=== PATIENT | male | born 1975 | race Two or more races ===

== ENCOUNTER → 2017-02-13 | Outpatient (CLI) | payer OTHER ==
--- NOTE | 2017-02-13 20:51 | HKNOTE ---
DATE OF SERVICE: 02/13/2017 REFERRING PHYSICIAN: Jackson Lamas MD MAIN COMPLAINT: Pain and instability of the right knee. HISTORY OF MAIN COMPLAINT: The patient is a 42-year-old male who complains of pain in his right kne e. The patient injured his right knee about 3 years ago while playing soccer. He was able to get u p from the injury and his knee was painful for a few weeks, but he never saw a physician for the kne e. Shortly, the knee improved. After as pain free period, his knee developed pain and instability, which has progressed over the past [address] Jackson Lamas who ordered an MRI scan on the knee and referred him to me for further evaluation and treatment. PRESENT COMPLAINTS: Pain in the right knee is mainly over the medial and posterior aspects of the k nee. The pain is described as moderate, occasionally severe, and is aggravated by climbing stairs o r by squatting. He occasionally gets pain at rest; he denied having any night pain. If he walks on a flat level surface, he can walk as far as he needs to; however, as soon as he walks on uneven bairon und, then he develops pain in the knee. The knee also becomes unstable and he has fallen twice. He does not notice the has swollen and there has not been any reported locking to the knee. The patient does have any problems with his lower back. He has no numbness or tingling in his legs. He does not limp. His leg lengths feel equal. He does not have a shoe lift. He can clip his toe nails and tie his shoelaces. PAST SPORTING ACTIVITIES: Patient has discontinued playing soccer. PAST ORTHOPEDIC HISTORY AND PREVIOUS ORTHOPEDIC OPERATIONS: None. PRIOR CORTISONE INTAKE: None. ALCOHOL INTAKE: "Very little," perhaps 2 beers a month. OTHER JOINT PROBLEMS: None. BLOOD TESTS FOR ARTHRITIS: None. PRIOR INJURIES TO HIPS OR KNEES: Only as above. 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 MEDICATIONS 1. Ibuprofen 800 mg a day. 2. Simvastatin 40 mg daily. FAMILY HISTORY: Both parents alive; history noncontributory. SYSTEMS REVIEW: Occasional heartburn, hypertension. HABITS: He does not smoke or drink alcoholic beverages. PHYSICAL EXAMINATION GENERAL: The patient is a fit-looking and youthful, 42-year-old male. He is somewhat overweight. VITAL SIGNS: Height 5 feet 8 inches, weight 182 pounds, blood pressure 116/68, temperature 99.3, a second temperature was 98.6. GENERAL: The patient walks without a walking aid. HIPS: Both hips have full range of motion without pain. RIGHT KNEE: The right knee shows normal alignment. Extension is full but painful. Flexion lacks abo ut 20 degrees and is markedly painful. The medial and lateral collateral ligaments and cruciate liga ments are intact. Jacklyn test is negative. 1+ effusion. Tender over the medial joint line. No sca rring, crepitus, or cysts. There is no tenderness on the articular surface of the patella or in the patellar groove. The Q angle is normal. IMAGING: An MRI scan of the right knee obtained on 01/09/[address] Michael Kunz as showing "chronic complete proximal/anterior cruciate ligament tear, with mild anterior tibial transl ation. Inner margin tearing of the posterior horn of the lateral meniscus, with mild intrasubstance degeneration of the lateral meniscus body. No acute osseous or acute ligamentous abnormality." DIAGNOSES 1. Tear of the anterior cruciate ligament of the right knee. 2. Tear of the lateral meniscus of the right knee. 3. Hypercholesterolemia. 4. Hypertension. DISCUSSION: The actual MRI pictures were reviewed. The tears in the lateral meniscus were noted. Although the MRI suggests that there is "a complete proximal/anterior cruciate ligament tear," remar kably, the knee seemed to be quite stable on stressing the anterior cruciate ligament. The question then arises whether or not this patient needs to have an anterior cruciate ligament rep air. In general, we do not recommend ACL tears in patients who are 40 or older, unless they are professio nal athletes. MANAGEMENT: The patient advised that he will need to have an arthroscopic operation on the knee. T he procedure and some of the major possible complications were discussed with him in a fair amount o f detail. Postoperative course was discussed with him. He will need to be off work for a minimum of 1 week after the procedure. Patient will call if and when he wishes to consider proceeding with the operation. Dictated By: TIANNA CABRALES/PRESTON Conf#: [id number] DID#: [id number] CC: Jackson Lamas MD;*[facility]*
--- NOTE | 2017-02-13 20:55 | HKNOTE ---
DATE OF SERVICE: 02/13/2017 Jackson Lamas MD [address] [place] [address] Lamas: Thank you for referring Mr. Ameya Garcia who is in my office today complaining of pain and insta bility in his right knee. He has a torn lateral meniscus and the MRI indicates a torn anterior cruciate ligament. Remarkably, on physical examination the cruciate ligament appears to be intact and the knee is not u nstable in an anterior/posterior stressing. He will definitely need to have an arthroscopic operation on his knee for the torn meniscus and eval uation of the rest of the knee. Thank you for your confidence in referring him to my care. Enclosed is a copy of my office notes fo r your records. With warmest regards, Dictated By: TIANNA CABRALES/PRESTON Conf#: [id number] DID#: [id number]
== END | disposition home or self-care (01) ==
LOC: HKI 13:25
DX: S76.111D Strain of right quadriceps muscle, fascia and tendon, subsequent encounter (principal); S83.281D Other tear of lateral meniscus, current injury, right knee, subsequent encounter; E87.8 Other disorders of electrolyte and fluid balance, not elsewhere classified; I10 Essential (primary) hypertension
CPT/HCPCS: G0463

== ENCOUNTER 2019-06-15 05:42 | Day surgery (SDC) | payer OTHER ==
[~2019-06-15] VITALS: Ht 172.7 cm; Wt 83.7 kg
[2019-06-15] VITALS (11 sets, daily range): BP systolic 113–129; BP diastolic 71–83; PULSE 64–80; RESP 10–22; Ht 172.7 cm; Wt 83.7 kg
[2019-06-15] MEDS ORDERED: ROPIVACAINE 0.5 % 30 ML VIAL ONE ×2 (06:57→07:37)
[2019-06-15] MEDS ORDERED: POLYMYXIN/BACITRACIN 1L IRRIG ONE (06:57)
[2019-06-15] MEDS ORDERED: BACITRACIN/POLYMYXIN 28.35 GM OINT TOP ONE (06:57)
[2019-06-15] MEDS ORDERED: LACTATED RINGER'S 1,000 ML IV SCH (07:00)
--- NOTE | 2019-06-15 07:28 | PREAC ---
Date/Time of Note Date/Time of Note DATE: 06/15/19 TIME: 07:27 Anesthesia Eval and Record Evaluation Time Pre-Procedure Interview DATE: 06/15/19 TIME: 07:27 Age 44 Sex male NPO: 8 hrs Preoperative diagnosis R knee injury Planned procedure R ACL reconstruction Past Medical History Past Medical History: Includes Cardio: Dyslipidemia GI: Obesity Surgery & Anesthesia Issues No known issue Meds Anticoagulation: No Beta Neris within 24 hr: No Reason Beta Neris not given: Pt. not on B-Neris No Active Prescriptions or Reported Meds Current Medications Lactated Ringer's 1,000 ml @ 0 mls/hr Q0M IV ; Start 06/15/19 at 07:00 Meds reviewed: Yes Allergies Coded Allergies: No Known Allergy (Unverified , 06/15/19) Allergies Reviewed: Yes Labs/Studies Labs Reviewed: Reviewed by anesthesiologist test: N/A Pre-procedure Exam Last vitals Vital Signs Date Temp Pulse Resp B/P (MAP) Pulse Ox O2 O2 Flow FiO2 Time Delivery Rate 06/15/19 98.0 73 18 113/72 96 Room Air 06:52 (86) Airway: Adequate mouth opening, Adequate thyromental dist Mallampati: Mallampati II Teeth: Normal Lung: Normal Heart: Normal ASA Physical Status ASA physical status: 2 Emergency: None Planned Anesthetic General/MAC: ETT Nerve block: Femoral (right) Pre-operative Attestations Prior to commencing anesthesia and surgery, the patient was re-evaluated, there was verification of: *The patient's identity *The results of appropriate recent lab work and preoperative vital signs *The above evaluation not changing prior to induction *Anesthetic plan, risk benefits, alternative and complications discussed with pa baileent/family; questions answered; patient/family understands, accepts and wishes to proceed. MERCEDES THOMSON Jun 15, 2019 07:28
--- NOTE | 2019-06-15 07:34 | HPN ---
Date/Time of Note Date/Time of Note DATE: 06/15/19 TIME: 07:33 Interval H&P Admission Note Pt. seen H&P reviewed: No system changes KELLY LONDON Jun 15, 2019 07:34
[2019-06-15] MEDS ORDERED: FENTAnyl 50 MCG/ML VIAL ONE ×2 (07:36→07:59)
[2019-06-15] MEDS ORDERED: MIDAZOLAM 1 MG/ML 2 ML INJ ONE (07:36)
[2019-06-15] MEDS ORDERED: LIDOCAINE 100 MG SYRINGE ONE (09:37)
[2019-06-15] MEDS ORDERED: ROCURONIUM 50 MG INJ ONE (09:37)
[2019-06-15] MEDS ORDERED: PROPOFOL 20 ML ONE (09:37)
[2019-06-15] MEDS ORDERED: SUCCINYLCHOLINE CHLORIDE 100 MG/5 ML SYG IV ONE (09:37)
[2019-06-15] MEDS ORDERED: CEFAZOLIN 1 GM INJ ONE (09:37)
[2019-06-15] MEDS ORDERED: SUGAMMADEX SODIUM 200 MG/2 ML VIAL IV ONE (10:14)
[2019-06-15] MEDS ORDERED: HYDROmorphONE 1 MG/5 ML IV SYRINGE IV PRN ×3 (11:00)
[2019-06-15] MEDS ORDERED: ALBUTEROL 0.083% (NEB) 2.5 MG/3 ML AMP HHN PRN (11:00)
[2019-06-15] MEDS ORDERED: FENTAnyl 50 MCG/ML VIAL IV PRN ×3 (11:00)
[2019-06-15] MEDS ORDERED: METOCLOPRAMIDE 10 MG INJ IV PRN (11:00)
[2019-06-15] MEDS ORDERED: ONDANSETRON 4 MG INJ IV PRN (11:00)
[2019-06-15] MEDS ORDERED: MEPERIDINE 25 MG INJ IV PRN (11:00)
[2019-06-15] MEDS ORDERED: DIPHENHYDRAMINE 50 MG INJ IV PRN (11:00)
--- NOTE | 2019-06-15 11:24 | OPR ---
Date/Time of Note Date/Time of Note DATE: 06/15/19 TIME: 11:09 Operative Report Procedure Date: Jun 15, 2019 Preoperative Diagnosis Right knee acl tear Right knee lateral meniscal tear Postoperative Diagnosis Right knee acl tear Right knee lateral meniscal tear Operation/Procedure Performed Right knee arthroscopy with ACL reconstruction with tib ant allograft Right knee arthroscopy with lateral meniscal repair Surgeon Rodrigue Alanis MD Handbag Frames Inspector Amauri Anne MD Anesthesia Type: general, other (Facia Ilacus) Anesthesiologist: MERCEDES THOMSON Tourniquet Time: 60 min at 250 mmHg Estimated Blood Loss: minimal Transfusion none Specimen none Grafts/Implants Mitek adjustable loop Mitek 8-10 BioIntrafix Tib Ant Allograft Ceterix Meniscal repair device Mitek Meniscal TrueSpan Complications none Pt Condition Post Procedure: stable Disposition: PACU Indications The patient is a 44 year-old male with a prolonged history of Right knee giving way after playing soccer. He has had continued episodes of instability with catching and clicking over the past several months. The patient has restored their range of motion and is now brought to the operating room for ACL reconstruction, possible partial medial and lateral meniscectomy versus medial and lateral meniscal repair, chondroplasty and debridement. Risk Note: The risks, benefits, and alternatives of surgery were discussed with the patient. The risks included but were not limited to infection, bleeding, damage to vessels and nerves, loss of motion, continued pain, re-tear of the meniscus, deep venous thrombosis, and complications due to anesthesia including nerve injury, myocardial infarction, stroke, , etc. The patient stated understanding of the nature of the surgical procedure and gave written and verbal consent to proceed Procedure Description Patient was met in the preoperative holding area and the correct operative extremity was confirmed with both patient and consent. Patient was given preoperative fascial iliacus block was placed. Patient was brought to the operative theater and placed supine on the operative table. Patient was given general anesthesia and preoperative antibiotics. The Right lower extremity was examined under anesthesia. Range of motion was 0 degrees of extension to 135 degrees of flexion. There was no varus or valgus or posterolateral instability. He had no instability to varus or valgus stress at 0 or 30 degrees. He had a 2+ Jacklyn and drawer with a positive pivot shift The Right lower extremity was then prepped and draped in the usual fashion. A tourniquet was placed proximally on the thigh over a bias stockinette. A standard anterolateral parapatellar stab wound was created. The knee joint wa s entered with a blunt-tipped obturator, followed by the 30-degree video arthroscope. An anteromedial portal was established under arthroscopic control. A routine arthroscopic survey was performed. The suprapatellar pouch was unremarkable. The undersurface of the patella was well-preserved. The patella appeared to track centrally within the trochlear groove. There was no chondromalacia under the lateral patella facet. The trochlea no chondromalacia. The medial and lateral gutters were inspected and there was no loose body seen. There was no hypertrophied plica. The popliteal hiatus was entered and was unremarkable. The lateral compartment was entered. The lateral femoral condyle exhibited grade 1 chondromalacia and the lateral tibial plateau showed no chondromalacia. There was no chondromalacia adjacent to the notch. There was no chondromalacia along the central aspect of the weight bearing lateral tibial plateau. The lateral meniscus torn in a horizontal manner that was treated with a meniscal rasp and then repaired with a Mitek truespan and a Ceterix repair device in a cerclage like fashion. The meniscus was then re probed and found to be stable. The intercondylar notch was visualized. The anterior cruciate ligament was torn from its femoral origin. Posteromedially there was no loose body seen. The posterior cruciate ligament was visualized and appeared intact although slightly strained. The medial compartment was entered. There is no chondromalacia to the medial tibial plateau or medial femoral condyle. The meniscus was probed and found to be stable. Attention was turned to reconstruction of the anterior cruciate ligament. Following exsanguination with an Esmarch bandage the tourniquet was inflated to 250 mm of mercury. Using a motorized shaver a limited notchplasty was performed, exposing the lateral wall and roof of the notch, identifying the [id number] position. The stump of the anterior cruciate ligament was debrided. A Vector guide was placed intra-articularly between the tibial spines in line with the anterior horn of the lateral meniscus. A Say wire was then inserted into the knee through a 2 cm incision made over the proximal medial tibia. The incision was deepened through the subcutaneous tissue with subperiosteal dissection achieved. Bleeding points were coagulated with the Bovie electrocautery. The tibialis anterior allograft was prepped to create a size 10 graft on both the femoral and tibial side. Tibial drilling was then carried out first with a 6 mm followed by a 8 mm then a size 10 mm cylindrical reamer with the guide set at 55 degrees. Via an accessory medial portal, the Beath pin was drilled out the femoral cortex and skin with the knee in hyperflexion. The femoral tunnel was then created, with a spade tip guidewire, Depth-gauging confirmed a condyle length of 35 mm. Then reaming proceeded, with a 10 mm drill to a tunnel depth of 28 mm. A adjustable rigid loop Mitek button was selected. The graft was inserted intra-articularly and the Mitek button was deployed. The graft was cycled for 20 cycles with 25 pounds of force to pre-load the graft. Tibial fixation was carried out using a 8-10 Bio-IntraFix in 10 degrees of flexion with a posterior drawer. At the completion of surgery the patient had a firm stable Jacklyn. There was a negative pivot shift. The patient had a 0 firm Jacklyn and a negative pivot shift. There was no evidence for any roof or lateral wall impingement. The tourniquet was deflated at 90 minutes. The knee was irrigated with two liters of lactated Ringer's solution. Excess fluid was drained. The tibial wounds were then copiously irrigated with bacitracin solution and closed in layers with #0, #2-0 and #3-0 Vicryl. The skin was reapproximated with 3-0 then #4-0 Monocryl. The knee was injected with 20 cc of 0.5% plain ropivacaine. A dry sterile dressing was applied, followed by a bulky bandage and venkat wrap, insuring no contact with the skin. A postoperative TROM brace was applied locked in full extension. The patient was awakened in the Operating Room and transported to the Recovery Room in satisfactory condition. The patient appeared to tolerate the procedure well. At the completion of surgery the patient had soft compartments, palpable pulses, and brisk capillary refill. There were no complications noted. Patient begin partial weightbearing this coming couple days. With the brace l ocked in extension he will begin aspirin 81 mg Po qday starting tomorrow. Handbag Frames Inspector surgeon: An clerical dentist assistant orthopedic surgeon clerical administrative assistant was needed for this case to assist with positioning of the limb during repair of the injury as well as assisting in fixation of the ACL and meniscus while holding the arthroscope. Without a qualified orthopedic surgeon in this case the case would be significantly more complex and longer. RODRIGUE ALANIS MD Jun 15, 2019 11:24
[2019-06-15] MEDS ORDERED: morphine 2 MG INJ IV PRN (11:30)
[2019-06-15] MEDS ORDERED: KETOROLAC 30 MG INJ IV SCH (11:30)
[2019-06-15] MEDS ORDERED: ACETAMINOPHEN 325 MG TAB PO PRN (11:30)
--- NOTE | 2019-06-16 07:55 | PAC ---
Date/Time of Note Date/Time of Note DATE: 06/16/19 TIME: 07:55 Post-Anesthesia Notes Post-Anesthesia Note Last documented vital signs Vital Signs Date Temp Pulse Resp B/P (MAP) Pulse Ox O2 O2 Flow FiO2 Time Delivery Rate 06/15/19 98.6 12:11 06/15/19 64 18 118/78 99 12:00 (91) 06/15/19 Room Air 11:24 06/15/19 8.0 10:43 Activity: WNL Respiratory function: WNL Cardiovascular function: WNL Mental status: Baseline Pain reasonably controlled: Yes Hydration appropriate: Yes Nausea/Vomiting absent: Yes MERCEDES THOMSON Jun 16, 2019 07:55
== END 2019-06-15 12:38 | disposition home or self-care (01) ==
LOC: SDS 05:42
PROVIDERS: ATTEND Orthopaedic Surgery
DX: S83.511D Sprain of anterior cruciate ligament of right knee, subsequent encounter (principal); X58.XXXD Exposure to other specified factors, subsequent encounter; S83.281D Other tear of lateral meniscus, current injury, right knee, subsequent encounter; M94.261 Chondromalacia, right knee
CPT/HCPCS: 29881; 29888; 82306; C1762; J0690; J1170; J1885; J2001; J2250; J2405; J2795; J3010; Z7512; Z7610